=== PATIENT | male | born 1975 | race Caucasian/White ===

== ENCOUNTER 2018-02-25 09:08 | Emergency (ER) | payer SELFPAY | END 2018-02-25 12:39 | disposition left against medical advice (07) | LOC: ER 11:21 | DX: Z53.21 Procedure and treatment not carried out due to patient leaving prior to being seen by health care provider (principal) ==

== ENCOUNTER 2018-02-27 23:56 | Inpatient (IN) | payer SELFPAY ==
[~2018-02-27] VITALS: Ht 162.6 cm; Wt 61.2 kg
[2018-02-28 05:55] LABS: BASOPHILS % 0.9 % (0.0-2.0); EOSINOPHILS % 1.7 % (0.0-5.0); HEMATOCRIT. 47.8 % (42.0-52.0); HEMOGLOBIN. 17.1 g/dL (14.0-18.0); LYMPHOCYTES % 49.3 % (20.0-50.0); MEAN CORPUSCULAR HEMOGLOBIN 30.7 pg (28.0-32.0); MEAN CORPUSCULAR VOLUME 85.9 fL (80.0-94.0); MEAN PLATELET VOLUME 8.8 fl (7.4-10.4); MONOCYTES % 7.3 % (2.0-8.0); NEUTROPHILS % 40.8 % (40.0-76.0); PLATELET 116 x1000/uL (130-400); RED BLOOD CELL COUNT 5.57 mill/uL (4.7-6.1); RED CELL DISTRIBUTION WIDTH 14.5 % (11.6-14.6)
[2018-02-28 06:02] LABS: CHLORIDE 98 mEq/L (98-107)
[2018-02-28 06:05] LABS: ETHANOL BLOOD 151 mg/dL
[2018-02-28 06:23] LABS: CLARITY URINE CLEAR (CLEAR); COLOR URINE DARK YELLOW (YELLOW); KETONES URINE 1+ (NEGATIVE); LEUKOCYTE ESTERASE URINE TRACE (NEGATIVE); NITRITE URINE NEGATIVE (NEGATIVE); OCCULT BLOOD URINE NEGATIVE (NEGATIVE); PH URINE 5.5 (4.5-8.0); PROTEIN URINE 2+ (NEGATIVE); SPECIFIC GRAVITY URINE 1.033 (1.005-1.030)
[2018-02-28 06:34] LABS: *AMPHETAMINES SCREEN URINE NEGATIVE (NEGATIVE); *BARBITURATES SCREEN URINE NEGATIVE (NEGATIVE); *BENZODIAZEPINES SCREEN URINE PRESUMTIVE POSITIVE (NEGATIVE); *COCAINE SCREEN URINE NEGATIVE (NEGATIVE); METHADONE URINE SCREEN NEGATIVE (NEGATIVE); OPIATES URINE SCREEN NEGATIVE (NEGATIVE)
[2018-02-28 06:35] LABS: CANNABINOID URINE SCREEN NEGATIVE (NEGATIVE); PHENCYCLIDINE URINE SCREEN NEGATIVE (NEGATIVE)
[2018-02-28] MEDS ORDERED: ONDANSETRON HCL 4MG/2ML VIAL IV STA (06:42)
[2018-02-28] MEDS ORDERED: SODIUM CHLORIDE 0.9% 1,000 ML IV ONE (06:42)
[2018-02-28] MEDS ORDERED: LORAZEPAM 2MG/ML CPJ IV ONE (07:15)
[2018-02-28 11:00] VITALS: BP 128/90
[2018-02-28 11:30] VITALS: BP 128/90
== END 2018-02-28 12:30 | disposition home or self-care (01) | DRG 282 ==
LOC: ER 02-28 00:10 → EDBEDREQ 02-28 08:33 → 6EST 02-28 08:48 → EDBEDREQ 02-28 08:58 → ENRESERV 02-28 09:24
PROVIDERS: ADMIT Internal Medicine; ATTEND Internal Medicine
DX: K85.90 Acute pancreatitis without necrosis or infection, unspecified (principal); K76.0 Fatty (change of) liver, not elsewhere classified; E83.51 Hypocalcemia; F10.129 Alcohol abuse with intoxication, unspecified; E87.6 Hypokalemia; R74.0 Nonspecific elevation of levels of transaminase and lactic acid dehydrogenase [LDH]
CPT/HCPCS: 36415; 71045; 74176; 80053; 80305; 80307; 80329; 81003; 83690; 85025; 93005; 96361; 96374; 96375; 99285; G0482; J2060; J2405; J7030

== ENCOUNTER 2019-07-16 02:03 | Emergency (ER) | payer SELFPAY ==
[~2019-07-16] VITALS: Ht 175.3 cm; Wt 65.0 kg
[2019-07-16] MEDS ORDERED: LORAZEPAM 2MG/ML CPJ ONE (03:27)
[2019-07-16] MEDS ORDERED: ONDANSETRON HCL 4MG/2ML INJ ONE (03:28)
[2019-07-16] MEDS ORDERED: POTASSIUM CHLORIDE 20MEQ TABLET SR PO ONE (05:52)
[2019-07-16] MEDS ORDERED: POTASSIUM CHLORIDE 20MEQ TABLET SR PO NR (06:02)
[2019-07-16 09:08] LABS: HEMATOCRIT. 43.7 % (42.0-52.0); HEMOGLOBIN. 15.3 g/dL (14.0-18.0); MEAN CORPUSCULAR HEMOGLOBIN 31.1 pg (28.0-32.0); MEAN CORPUSCULAR VOLUME 89.1 fL (80.0-94.0); MEAN PLATELET VOLUME 11.9 fl (7.4-10.4); PLATELET 83 x1000/uL (130-400); RED CELL DISTRIBUTION WIDTH 15.2 % (11.6-14.6)
[2019-07-16 09:37] LABS: CHLORIDE 100 mEq/L (98-107)
[2019-07-16 09:41] LABS: ETHANOL BLOOD 163 mg/dL
[2019-07-16 10:16] LABS: PLATELET ESTIMATE DECREASED
[2019-07-16] MEDS ORDERED: CHLORDIAZEPOXIDE 25MG CAPSULE PO ONE (10:45)
[2019-07-16 10:54] VITALS: BP 126/73
[2019-07-16 13:57] LABS: CLARITY URINE CLOUDY (CLEAR); COLOR URINE DARK YELLOW (YELLOW); KETONES URINE 3+ (NEGATIVE); LEUKOCYTE ESTERASE URINE TRACE (NEGATIVE); NITRITE URINE POSITIVE (NEGATIVE); OCCULT BLOOD URINE TRACE (NEGATIVE); PROTEIN URINE 3+ (NEGATIVE); SPECIFIC GRAVITY URINE 1.032 (1.005-1.030)
[2019-07-16 14:17] LABS: *AMPHETAMINES SCREEN URINE NEGATIVE (NEGATIVE); *BARBITURATES SCREEN URINE NEGATIVE (NEGATIVE); *BENZODIAZEPINES SCREEN URINE NEGATIVE (NEGATIVE)
[2019-07-16 14:19] LABS: *COCAINE SCREEN URINE NEGATIVE (NEGATIVE); CANNABINOID URINE SCREEN NEGATIVE (NEGATIVE); METHADONE URINE SCREEN NEGATIVE (NEGATIVE); OPIATES URINE SCREEN NEGATIVE (NEGATIVE); PHENCYCLIDINE URINE SCREEN NEGATIVE (NEGATIVE)
== END 2019-07-16 11:17 | disposition home or self-care (01) ==
LOC: ER 02:03
DX: F10.129 Alcohol abuse with intoxication, unspecified (principal); Y90.6 Blood alcohol level of 120-199 mg/100 ml; G47.00 Insomnia, unspecified
CPT/HCPCS: 36415; 80048; 80305; 80307; 80320; 80329; 81003; 85025; 99283; J2060; J2405; G0480

== ENCOUNTER 2019-12-24 14:04 | Inpatient (IN) | payer SELFPAY ==
[~2019-12-24] VITALS: Ht 165.1 cm; Wt 62.6 kg
[2019-12-25] MEDS ORDERED: LORAZEPAM 2MG/ML CPJ IV STA (00:14)
[2019-12-25] MEDS ORDERED: ONDANSETRON HCL 4MG/2ML INJ IV ONE (00:15)
[2019-12-25] MEDS ORDERED: FOLIC ACID 1 MG, THIAMINE HCL 100 MG, MVI, ADULT NO.1 10 ML in DEXTROSE 5% WATER 1,000 ML IV ONE ×12 (00:15→14:45)
[2019-12-25 01:03] LABS: BASOPHILS % 0.4 % (0.0-2.0); HEMATOCRIT. 45.2 % (42.0-52.0); HEMOGLOBIN. 15.6 g/dL (14.0-18.0); LYMPHOCYTES % 12.9 % (20.0-50.0); MEAN CORPUSCULAR HEMOGLOBIN 29.4 pg (28.0-32.0); MEAN CORPUSCULAR VOLUME 85.3 fL (80.0-94.0); MEAN PLATELET VOLUME 9.8 fl (7.4-10.4); MONOCYTES % 9.5 % (2.0-8.0); NEUTROPHILS % 77.2 % (40.0-76.0); PLATELET 89 x1000/uL (130-400); RED BLOOD CELL COUNT 5.29 mill/uL (4.7-6.1); RED CELL DISTRIBUTION WIDTH 13.2 % (11.6-14.6)
[2019-12-25 01:03] LABS: CLARITY URINE CLOUDY (CLEAR); COLOR URINE DARK YELLOW (YELLOW); KETONES URINE 3+ (NEGATIVE); LEUKOCYTE ESTERASE URINE TRACE (NEGATIVE); NITRITE URINE NEGATIVE (NEGATIVE); OCCULT BLOOD URINE 1+ (NEGATIVE); PH URINE 5.5 (4.5-8.0); PROTEIN URINE 3+ (NEGATIVE)
[2019-12-25 01:10] LABS: CHLORIDE 83 mEq/L (98-107)
[2019-12-25 01:13] LABS: ETHANOL BLOOD < 10 mg/dL
[2019-12-25 01:16] LABS: *AMPHETAMINES SCREEN URINE NEGATIVE (NEGATIVE); *BARBITURATES SCREEN URINE NEGATIVE (NEGATIVE); *BENZODIAZEPINES SCREEN URINE NEGATIVE (NEGATIVE); *COCAINE SCREEN URINE NEGATIVE (NEGATIVE)
[2019-12-25 01:17] LABS: CANNABINOID URINE SCREEN NEGATIVE (NEGATIVE); METHADONE URINE SCREEN NEGATIVE (NEGATIVE); OPIATES URINE SCREEN NEGATIVE (NEGATIVE)
[2019-12-25 01:18] LABS: PHENCYCLIDINE URINE SCREEN NEGATIVE (NEGATIVE)
[2019-12-25] MEDS ORDERED: LORAZEPAM 1MG TABLET PO ONE (03:00)
[2019-12-25] MEDS ORDERED: GUAIFENESIN 200MG/10ML SUGAR FREE UDC PO PRN (08:00)
[2019-12-25] MEDS ORDERED: LORAZEPAM 2MG/ML CPJ IV PRN (08:00)
[2019-12-25] MEDS ORDERED: ONDANSETRON HCL 4MG/2ML INJ IV PRN (08:00)
[2019-12-25] MEDS ORDERED: DIPHENHYDRAMINE 50MG/ML VIAL IV PRN (08:00)
[2019-12-25] MEDS ORDERED: CLONIDINE 0.1MG TABLET PO PRN (08:00)
[2019-12-25 10:47] LABS: PHOSPHORUS 1.7 mg/dL (2.5-4.9)
[2019-12-25 11:26] VITALS: BP 132/78
[2019-12-25 12:00] VITALS: BP 125/83
[2019-12-25] MEDS: CHLORDIAZEPOXIDE 25MG CAPSULE PO SCH ×2 (14:35→21:24)
[2019-12-25] MEDS: DEXT 5%/0.9% NACL 1,000 ML IV SCH (15:15)
[2019-12-25 16:00] VITALS: BP 115/77
[2019-12-25] MEDS ORDERED: DEXTROSE 50% WATER 50ML SYRINGE IV PRN (19:30)
[2019-12-25 20:00] VITALS: BP 108/69
[2019-12-25] MEDS: BLOOD SUGAR DIAGNOSTIC STRIP TEST SCH (21:00)
[2019-12-25] MEDS: INSULIN LISPRO 100 UNITS/ML SUBCUT SCH (21:00)
[2019-12-26] VITALS: BP 103/69
[2019-12-26 04:00] VITALS: BP 96/56
[2019-12-26] MEDS: CHLORDIAZEPOXIDE 25MG CAPSULE PO SCH ×3 (05:32→21:29)
[2019-12-26] MEDS: DEXT 5%/0.9% NACL 1,000 ML IV SCH (05:33)
[2019-12-26] MEDS: BLOOD SUGAR DIAGNOSTIC STRIP TEST SCH ×4 (06:36→20:37)
[2019-12-26] MEDS: INSULIN LISPRO 100 UNITS/ML SUBCUT SCH ×4 (06:36→20:37)
[2019-12-26 08:00] VITALS: BP 117/72
[2019-12-26 08:26] LABS: BASOPHILS % 0.7 % (0.0-2.0); EOSINOPHILS % 1.7 % (0.0-5.0); HEMATOCRIT. 40.2 % (42.0-52.0); HEMOGLOBIN. 14.1 g/dL (14.0-18.0); LYMPHOCYTES % 25.9 % (20.0-50.0); MEAN CORPUSCULAR VOLUME 85.4 fL (80.0-94.0); MEAN PLATELET VOLUME 9.9 fl (7.4-10.4); MONOCYTES % 9.6 % (2.0-8.0); NEUTROPHILS % 62.1 % (40.0-76.0); PLATELET 72 x1000/uL (130-400); RED CELL DISTRIBUTION WIDTH 13.3 % (11.6-14.6)
[2019-12-26 08:41] LABS: CHLORIDE 91 mEq/L (98-107)
[2019-12-26 08:57] LABS: LDL CHOLESTEROL 89 mg/dL (5-100)
[2019-12-26 08:58] LABS: HDL CHOLESTEROL 79 mg/dL (40-59)
[2019-12-26] MEDS ORDERED: POTASSIUM CHLORIDE 20MEQ/PACKET PO NR (09:30)
[2019-12-26] MEDS ORDERED: POTASSIUM CHLORIDE INJ 40 MEQ in DEXT 5% WATER 250 ML IV NR (10:00)
[2019-12-26 12:00] VITALS: BP 102/68
[2019-12-26 16:00] VITALS: BP 101/63
[2019-12-26 20:00] VITALS: BP 102/69
[2019-12-27] VITALS: BP 96/66
[2019-12-27] MEDS: DEXT 5%/0.9% NACL 1,000 ML IV SCH ×2 (02:47→17:50)
[2019-12-27 04:00] VITALS: BP 96/63
[2019-12-27] MEDS: CHLORDIAZEPOXIDE 25MG CAPSULE PO SCH ×3 (05:45→21:39)
[2019-12-27] MEDS: INSULIN LISPRO 100 UNITS/ML SUBCUT SCH ×4 (05:59→20:35)
[2019-12-27] MEDS: BLOOD SUGAR DIAGNOSTIC STRIP TEST SCH ×4 (05:59→20:36)
[2019-12-27 06:00] LABS: CHLORIDE 103 mEq/L (98-107)
[2019-12-27 06:06] LABS: BASOPHILS % 0.8 % (0.0-2.0); EOSINOPHILS % 3.4 % (0.0-5.0); HEMATOCRIT. 38.6 % (42.0-52.0); HEMOGLOBIN. 13.6 g/dL (14.0-18.0); LYMPHOCYTES % 35.1 % (20.0-50.0); MEAN CORPUSCULAR HEMOGLOBIN 30.2 pg (28.0-32.0); MEAN CORPUSCULAR VOLUME 85.9 fL (80.0-94.0); MEAN PLATELET VOLUME 10.2 fl (7.4-10.4); MONOCYTES % 12.3 % (2.0-8.0); NEUTROPHILS % 48.4 % (40.0-76.0); PLATELET 76 x1000/uL (130-400); RED BLOOD CELL COUNT 4.49 mill/uL (4.7-6.1); RED CELL DISTRIBUTION WIDTH 13.4 % (11.6-14.6)
[2019-12-27] MEDS ORDERED: POTASSIUM CHLORIDE 20MEQ TABLET SR PO SCH ×3 (07:30→12:00)
[2019-12-27 08:00] VITALS: BP 94/57
[2019-12-27] MEDS ORDERED: HYDROCODONE/ACETAMINOPHEN 5/325MG TABLET PO PRN (10:45)
[2019-12-27 12:00] VITALS: BP 100/69
[2019-12-27 16:00] VITALS: BP 98/68
[2019-12-27] MEDS ORDERED: L25 PO (18:56)
[2019-12-27 19:44] VITALS: BP 114/77
[2019-12-27] MEDS ORDERED: ZOLPIDEM TARTRATE 5MG TABLET PO PRN (22:00)
[2019-12-27] MEDS ORDERED: LORAZEPAM 0.5MG TABLET PO PRN (22:00)
[2019-12-28] VITALS: BP 110/69
[2019-12-28] MEDS: DEXT 5%/0.9% NACL 1,000 ML IV SCH (02:58)
[2019-12-28 04:00] VITALS: BP 101/64
[2019-12-28] MEDS: CHLORDIAZEPOXIDE 25MG CAPSULE PO SCH (06:06)
[2019-12-28] MEDS: BLOOD SUGAR DIAGNOSTIC STRIP TEST SCH (06:06)
[2019-12-28] MEDS: INSULIN LISPRO 100 UNITS/ML SUBCUT SCH (06:50)
[2019-12-28 07:53] LABS: CHLORIDE 106 mEq/L (98-107)
[2019-12-28 08:00] VITALS: BP 115/78
[2019-12-28 08:36] VITALS: BP 115/78
[2019-12-28] MEDS ORDERED: POTASSIUM CHLORIDE 20MEQ/PACKET PO NR (08:45)
== END 2019-12-28 10:25 | disposition home or self-care (01) | DRG 775 ==
LOC: ER 14:04 → 5WST 12-25 03:46 → ENRESERV 12-25 08:19 → 5WST 12-25 09:02
PROVIDERS: ADMIT Internal Medicine; ATTEND Internal Medicine
DX: F10.120 Alcohol abuse with intoxication, uncomplicated (principal); E11.65 Type 2 diabetes mellitus with hyperglycemia; E87.6 Hypokalemia; R74.0 Nonspecific elevation of levels of transaminase and lactic acid dehydrogenase [LDH]
CPT/HCPCS: 36415; 71045; 80048; 80053; 80061; 80305; 80320; 81003; 82962; 83036; 83735; 84100; 84132; 84443; 85025; 93970; 96365; 99285; J1200; J2060; J2405; J3411; J3480; J3490; J7042; J7060; J7070; G0480

== ENCOUNTER 2025-04-05 01:26 | Emergency (ER) | payer MEDICAID ==
[~2025-04-05] VITALS: Ht 167.6 cm; Wt 73.0 kg
[~2025-04-05 01:26] MED LIST: CHLO25CA11 MT; PHOS250T5 MT; POTA-205 MT; THIA100T88 MT
[2025-04-05 01:35] VITALS: O2SAT 99
[2025-04-05] MEDS ORDERED: LORAZEPAM 2MG/ML INJ IV ONE (02:30)
[2025-04-05] MEDS ORDERED: FOLIC ACID 1 MG, THIAMINE HCL 100 MG, MVI, ADULT NO.1 10 ML in DEXTROSE 5% WATER 1,000 ML IV ONE (02:30)
[2025-04-05] MEDS: LORAZEPAM 2MG/ML UD SYRINGE IV SCH (02:40)
[2025-04-05] MEDS: ONDANSETRON HCL 4MG/2ML INJ IV STA (02:46)
[2025-04-05] MEDS: FOLIC ACID 1 MG, THIAMINE HCL 100 MG, MVI, ADULT NO.1 10 ML in SODIUM CHLORIDE 0.45% 1,... IV SCH (03:04)
[2025-04-05 03:10] LABS: BASOPHILS % 0.4 % (0.0-2.0); EOSINOPHILS % 0.3 % (0.0-5.0); HEMATOCRIT. 46.5 % (42.0-52.0); HEMOGLOBIN. 15.5 g/dL (14.0-18.0); LYMPHOCYTES % 50.3 % (20.0-50.0); MEAN CORPUSCULAR HEMOGLOBIN 29.2 pg (28.0-32.0); MEAN CORPUSCULAR HGB CONC 33.2 g/dL (31.0-37.0); MEAN CORPUSCULAR VOLUME 87.9 fL (80.0-94.0); MEAN PLATELET VOLUME 10.5 fl (7.4-10.4); MONOCYTES % 4.2 % (2.0-8.0); NEUTROPHILS % 44.8 % (40.0-76.0); PLATELET 111 x1000/uL (130-400); RED CELL DISTRIBUTION WIDTH 14.3 % (11.6-14.6); WHITE BLOOD COUNT 5.9 x1000/uL (4.5-11.0)
[2025-04-05 03:46] LABS: CHLORIDE 98 mEq/L (98-107); POTASSIUM 3.3 mEq/L (3.5-5.1); SODIUM 141 mEq/L (136-145)
[2025-04-05 03:47] LABS: CARBON DIOXIDE 21 mEq/L (21-32)
[2025-04-05 03:48] LABS: CALCIUM 8.8 mg/dL (8.7-10.4)
[2025-04-05 03:52] LABS: CREATININE 0.9 mg/dL (0.6-1.3); GLUCOSE 157 mg/dL (70-105)
[2025-04-05 03:53] LABS: ETHANOL BLOOD 300 mg/dL (<10); UREA NITROGEN BLOOD 9 mg/dL (9-23)
[2025-04-05 03:54] LABS: ALANINE AMINOTRANSFERASE 45 IU/L (10-49); ALBUMIN 4.9 g/dL (3.2-4.8); ASPARTATE AMINOTRANSFERASE 60 IU/L (<34)
[2025-04-05 03:55] LABS: BILIRUBIN DIRECT 0.3 mg/dL (<=3.0); BILIRUBIN TOTAL 0.9 mg/dL (0.1-1.0); PROTEIN TOTAL 8.7 g/dL (6.0-8.3)
[2025-04-05 08:54] VITALS: BP 112/64; PULSE 76; RESP 11; TEMP 36.6; O2SAT 99
== END 2025-04-05 09:03 | disposition home or self-care (01) ==
LOC: ER 01:26
DX: F41.9 Anxiety disorder, unspecified (principal); F10.229 Alcohol dependence with intoxication, unspecified; Y90.9 Presence of alcohol in blood, level not specified
CPT/HCPCS: 80076; 80048; 80320; 83690; 85025; 36415; 71045; 96365; 96375; 99291; J3490 ×2; J2060; J2405; J3411; J7070; G0480